=== PATIENT | female | born 2000 | race Two or more races ===

== ENCOUNTER → 2025-08-24 | Outpatient (CLI) | payer OTHER ==
[2025-08-24 18:04] LABS: PLATELET COUNT, AUTOMATED 416 10^3/uL (150-450)
[2025-08-24 18:38] LABS: HIV 1&2 SCREEN NEGATIVE (NEGATIVE)
[2025-08-24 18:47] LABS: HEPATITIS C VIRUS ABY INDEX < 0.02 INDEX (<0.8)
== END ==
LOC: M PLALAB 14:35
PROVIDERS: ATTEND Advanced Practice Midwife
DX: O30.009 Twin pregnancy, unspecified number of placenta and unspecified number of amniotic sacs, unspecified trimester (principal); Z3A.00 Weeks of gestation of pregnancy not specified

== ENCOUNTER → 2025-09-06 | Outpatient (CLI) | payer OTHER | LOC: M WHC 06:36 | PROVIDERS: ATTEND Advanced Practice Midwife | DX: O30.001 Twin pregnancy, unspecified number of placenta and unspecified number of amniotic sacs, first trimester (principal) ==

== ENCOUNTER 2025-09-10 15:38 | Emergency (ER) | payer OTHER ==
[~2025-09-10] VITALS: Ht 154.9 cm; Wt 71.1 kg
[2025-09-10] MEDS ORDERED: MULTTAB20 PO (16:01)
[2025-09-10] MEDS: ACETAMINOPHEN 500 MG TAB PO ONE (16:29)
[2025-09-10 16:34] LABS: KETONE, URINE AUTO RFX NEGATIVE (NEGATIVE); MUCUS, URINE RFX SMALL (NEGATIVE); NITRITE, URINE AUTO RFX NEGATIVE (NEGATIVE); RBC, URINE AUTO RFX 1 /HPF (0-3); SQUAM EPITHELIAL CELL UR AURFX 2 /HPF (0-6); WBC, URINE AUTO RFX 6 /HPF (0-3)
[2025-09-10 16:37] LABS: BASO # 0.0 10^3/uL (0.0-0.2); BASO % 0.3 % (0.0-1.0); EOS # 0.2 10^3/uL (0.0-0.5); EOS % 2.3 % (0.0-3.0); LYMPH # 2.2 10^3/uL (1.5-5.0); LYMPH % 28.7 % (24.0-44.0); MONO # 0.5 10^3/uL (0.0-0.8); MONO % 6.9 % (2.0-8.0); NEUTROPHILS # 4.8 10^3/uL (1.5-8.5); NEUTROPHILS % 61.5 % (36.0-66.0); PLATELET COUNT, AUTOMATED 368 10^3/uL (150-450)
[2025-09-10 16:37] LABS: LEUKOCYTE ESTERASE UR AUTO RFX 2+ (NEGATIVE)
[2025-09-10 17:06] LABS: CALCIUM LEVEL 9.2 MG/DL (8.5-10.1); CARBON DIOXIDE LEVEL 25 MMOL/L (20-31); CHLORIDE LEVEL 104 MMOL/L (98-107); CREATININE FOR GFR 0.67 MG/DL (0.55-1.30); GLOMERULAR FILTRATION RATE > 90.0 (>60); POTASSIUM SERUM 3.8 MMOL/L (3.5-5.1); SODIUM LEVEL 138 MMOL/L (136-145)
[2025-09-10] MEDS: CEPHALEXIN 500 MG CAP PO ONE ×2 (18:04→20:10)
[2025-09-10] MEDS ORDERED: CEPH500C PO (20:05)
[2025-09-10 20:21] VITALS: BP 123/78; TEMP 98; O2SAT 100
== END 2025-09-10 20:15 | disposition home or self-care (01) ==
LOC: M ED 15:38
DX: O23.42 Unspecified infection of urinary tract in pregnancy, second trimester (principal); Z79.2 Long term (current) use of antibiotics; Z79.899 Other long term (current) drug therapy; Z3A.13 13 weeks gestation of pregnancy

== ENCOUNTER → 2025-09-27 | Outpatient (REF) | payer OTHER ==
[~2025-09-27] MED LIST: CEPH500C PO; MULTTAB20 PO
== END ==
LOC: M SFHCWAGY 16:45
PROVIDERS: ATTEND Obstetrics & Gynecology
DX: R30.0 Dysuria (principal)